=== PATIENT | male | born 1985 | race Hispanic/Latino ===

== ENCOUNTER 2017-04-12 03:25 | Emergency (ER) | payer OTHER ==
[~2017-04-12] VITALS: Ht 167.6 cm; Wt 62.6 kg
[2017-04-12 03:53] LABS: HEMATOCRIT 44.9 % (38.0-50.0); HEMOGLOBIN 15.1 G/DL (12.5-16.6); MCH 28.2 PG (29.0-34.0); MCHC 33.6 G/DL (30.0-36.0); MCV 83.9 FL (86-99); PLATELET COUNT 180 K/uL (156-360); RBC DIS.WIDTH-CV 12.7 % (11.8-14.6); RBC DIS.WIDTH-SD 38.5 % (39-53); RED BLOOD COUNT 5.35 M/uL (4.00-5.50); WHITE BLOOD COUNT 4.6 K/uL (4.1-10.2)
[2017-04-12 04:00] LABS: ALBUMIN 4.6 g/dL (3.2-4.8)
[2017-04-12 04:01] LABS: CHLORIDE 103 mEq/L (99-109); POTASSIUM 3.5 mEq/L (3.7-5.4); SODIUM 136 mEq/L (136-147)
[2017-04-12 04:03] LABS: GLUCOSE 103 mg/dL (70-99); TOTAL PROTEIN 7.9 g/dL (6.4-8.3)
[2017-04-12 04:05] LABS: TOTAL BILIRUBIN 0.6 mg/dL (0.0-1.0)
[2017-04-12 04:06] LABS: ALKALINE PHOSPHATASE 71 IU/L (3-129)
[2017-04-12 04:08] LABS: AST (GOT) 27 IU/L (2-34); UREA NITROGEN (BUN) 14 mg/dL (9-23)
[2017-04-12 04:09] LABS: ALT (GPT) 25 IU/L (3-49)
[2017-04-12 04:14] LABS: GFR ESTIMATE (CALCULATED) > 59 mL/min/ (58.99-99999)
[2017-04-12] MEDS ORDERED: ZOFRAN4 MG PO (05:33)
[2017-04-12] MEDS ORDERED: BENTYL20 MG PO (05:33)
[2017-04-12 06:08] VITALS: BP 127/84
[2017-04-12 06:18] LABS: LIPASE 24 U/L (1.0-51.0)
== END 2017-04-12 06:10 | disposition home or self-care (01) ==
LOC: EME 03:25
DX: R11.2 Nausea with vomiting, unspecified (principal); R19.7 Diarrhea, unspecified; R10.84 Generalized abdominal pain
CPT/HCPCS: 80053; 81003; 83690; 85027; 99281; 99284